=== PATIENT | male | born 1975 | race Caucasian/White ===

== ENCOUNTER 2024-06-23 08:53 | Day surgery (SDC) | payer BC, SELFPAY ==
[2024-06-21 14:59] VITALS: BMI 30.4
[2024-06-23 09:44] VITALS: BMI 25.5
[2024-06-23 09:47] VITALS: BP 131/91; PULSE 71; RESP 20; TEMP 36.4; O2SAT 98
[2024-06-23] MEDS: Lactated Ringers 1,000 ML 100 ML IVCONT (10:04)
--- NOTE | 2024-06-23 10:37 | P.CONAN_ITS ---
HPI - Anesthesia Eval Consult details Narrative: for colonoscopy [facility] Past Medical History Medical History (Updated 06/21/24 @ 14:55 by Mare Nichole, [place]) Dysphagia GERD (gastroesophageal reflux disease) HTN (hypertension) Family History Family History (Updated 06/21/24 @ 14:55 by Mare Nichole RN) Father Colon cancer Family history of problems with anesthesia: No Surgical History Surgical History (Updated 06/21/24 @ 14:58 by Mare Nichole RN) Hx of wisdom tooth extraction History of esophagogastroduodenoscopy (EGD) (2019) History of esophagogastroduodenoscopy (EGD) (2018) Hx of colonoscopy (03/2019) History of Problems with Anesthesia: No Social History Social History Patient Tobacco Use Status: Never used Tobacco Use of substances other than those prescribed or required for medical reasons: No Are you DNR?: No Advance Directives: No Advance Directives Information Provided: Yes Meds Allergies Allergy/AdvReac Type Severity Reaction Status Date / Time No Known Allergies Allergy Unverified 12/16/19 14:57 Active Medications: Current Medications Lactated Ringer's (Lr) 1,000 mls @ 100 mls/hr IVCONT .Q10H WENDY Last Admin: 06/23/24 10:04 Dose: 100 mls/hr Sodium Biphosphate/Sodium Phosphate (Sodium Phosphate,Parke-Dibasic 133 Ml Enema) 133 ml LA ONCE PRN PRN Reason: Poor Colonoscopy Prep Results Home Medications ?Medication ?Instructions ?Recorded ?Confirmed ?Last Taken ?Type lisinopril 5 mg tablet 5 mg PO DAILY 06/21/24 06/21/24 Unknown History omeprazole 40 mg capsule,delayed 40 mg PO QAM 06/21/24 06/21/24 Unknown History release Exam Height,Weight and Vital Signs: Height 5 ft 11 in Weight 82.9 kg Last Vital Signs Temp 97.5 F 06/23/24 09:47 Pulse 71 06/23/24 09:47 Resp 20 06/23/24 09:47 BP 131/91 H 06/23/24 09:47 Pulse Ox 98 06/23/24 09:47 O2 Del Method Room Air 06/23/24 09:47 Airway Mallampati Class: I TM Dist: >3cm Neck ROM: Full Loose/Missing/Broken Teeth: No Heart: ok Lungs: ok Assessment and Plan Assessment Anesthesia Assessment: Anesthesia Plan Discussed and Chart Reviewed Final Anesthetic Review Family History of Problems with Anesthesia: No History of Problems with Anesthesia: No NPO: Yes ASA Class: II Final Preanesthetic Review: No Changes in Pt Med Stat, Meds/Allgs Chart Reviewed, Consent Obtained/Reviewed and Anes Risks/Benef Reviewed Patient Risk: Low Procedure Risk: Intermediate Anesthetic Plan Anesthetic Plan: MAC: and Agree w/ Assess. and Plan Disposition: Standard PACU
--- NOTE | 2024-06-23 11:28 | P.BOP_ITS ---
Brief Operative Note Date of Service: 06/23/24 Pre-op diagnosis: Screening Post-op diagnosis: other (Diverticulosis) Procedure: Colonoscopy to the cecum Surgeon: Abel Espinal MD Anesthesia: MAC Was an Subscription Crew Leader used for this Procedure?: No Estimated blood loss (mL): 0 Pathology: none sent Condition: stable Disposition: PACU
[2024-06-23 11:30] VITALS: BP 103/71; PULSE 68; RESP 18; TEMP 36.6; O2SAT 99
[2024-06-23 11:42] VITALS: BP 112/72; PULSE 72; RESP 16; TEMP 36.6; O2SAT 99
--- NOTE | 2024-06-23 11:53 | OP_ITS ---
DATE OF SERVICE: 06/23/2024 SURGEON: Abel Espinal MD INDICATIONS: The patient presents for evaluation of colorectal cancer screening, personal history of tubular adenoma of the colon, and family history of colon cancer. Full consent has been obtained from him for this, including risks of bleeding and perforation. PREOPERATIVE DIAGNOSIS: POSTOPERATIVE DIAGNOSIS: PROCEDURE PERFORMED: Colonoscopy to the cecum. ESTIMATED BLOOD LOSS: COMPLICATIONS: ANESTHESIA: Medication used, monitored anesthesia care. ASSISTANTS: SPECIMENS: PREOPERATIVE DIAGNOSES: Colorectal cancer screening, personal history of tubular adenoma of the colon, family history of colon cancer. POSTOPERATIVE DIAGNOSES: Colorectal cancer screening, personal history of tubular adenoma of the colon, family history of colon cancer, sigmoid diverticulosis, and internal hemorrhoids. DESCRIPTION OF PROCEDURE: The patient was placed in the left lateral decubitus position. The digital rectal exam revealed no abnormalities. The Olympus video pediatric colonoscope was entered into the rectum and advanced easily to the cecum. Once in the cecum, I did identify normal-appearing cecal pouch with appendiceal orifice and a normal-appearing ileocecal valve. There was transillumination of light deep in the right lower quadrant. The entire cecum and ileocecal valve appeared normal. The scope was slowly withdrawn assessing all mucosal surfaces carefully. Preparation was excellent. I did not visualize any sign of polyps, colitis, nor angiodysplasia. There was a mild amount of sigmoid diverticulosis. In the rectum, scope was retroflexed visualizing internal hemorrhoids, but no other pathology. The rectal mucosa appeared normal. The scope was straightened and withdrawn from the patient. He tolerated the procedure well and was returned to the recovery area in stable condition. IMPRESSION: 1. Diverticulosis. 2. Internal hemorrhoids. PLAN: I would recommend a repeat colonoscopy in 5 years for further screening. He will otherwise see me in the interim on a p.r.n. basis. He was advised to continue his daily omeprazole for his previous history of reflux and esophagitis. MD FEDERICO Red/BRANDT / [id number]
== END 2024-06-23 12:09 | disposition home or self-care (01) ==
PROVIDERS: Visit Provider Internal Medicine
PROC: 0DJD8ZZ Inspection of Lower Intestinal Tract, Via Natural or Artificial Opening Endoscopic (ICD-10-PCS; CPT 45378; principal; 2024-06-23 10:20)
DX: Z12.11 Encounter for screening for malignant neoplasm of colon (principal); Z86.0101 Personal history of adenomatous and serrated colon polyps; Z80.0 Family history of malignant neoplasm of digestive organs; K57.30 Diverticulosis of large intestine without perforation or abscess without bleeding; K64.8 Other hemorrhoids; K21.9 Gastro-esophageal reflux disease without esophagitis; R13.10 Dysphagia, unspecified; I10 Essential (primary) hypertension; Z79.899 Other long term (current) drug therapy
CPT/HCPCS: 45378; J2003; J2704